=== PATIENT | male | born 1945 | race Caucasian/White ===

== ENCOUNTER 2017-12-31 12:15 | Emergency (ER) | payer OTHER, MEDICARE ==
[~2017-12-31] VITALS: Ht 172.7 cm; Wt 65.8 kg
[2017-12-31 12:15] VITALS: BP_SYST 113
[2017-12-31 13:30] VITALS: BP_SYST 117
== END 2017-12-31 13:30 | disposition home or self-care (01) ==
LOC: SED 12:15
DX: L60.0 Ingrowing nail (principal)
CPT/HCPCS: 99283